=== PATIENT | female | born 1950 | race Caucasian/White ===

== ENCOUNTER 2019-08-09 19:07 | Emergency (ER) | payer MEDICARE, OTHER ==
[~2019-08-09] VITALS: Ht 165.1 cm; Wt 74.8 kg
[2019-08-09] MEDS ORDERED: IBUP200 (19:29)
[2019-08-10] MEDS ORDERED: Roxicodone5 MG PO (00:07)
[2019-08-10] MEDS ORDERED: Bactrim Ds Tab1 EACH PO (00:07)
== END 2019-08-10 03:53 | disposition home or self-care (01) ==
LOC: ER 19:07
DX: S61.211A Laceration without foreign body of left index finger without damage to nail, initial encounter (principal); Z23 Encounter for immunization; Z88.0 Allergy status to penicillin; Z88.1 Allergy status to other antibiotic agents; W23.0XXA Caught, crushed, jammed, or pinched between moving objects, initial encounter
CPT/HCPCS: 12002; 73140; 90471; 90714; 99284-25; A9270; A9270-GY